=== PATIENT | female | born 1975 | race African-American/Black ===

== ENCOUNTER 2017-09-20 16:32 | Inpatient (IN) ==
[2017-09-20] MEDS ORDERED: METOCLOPRAMIDE 10 MG/2 ML VIAL IV STA (17:42)
[2017-09-20] MEDS ORDERED: PANTOPRAZOLE 40 MG VIAL IV STA (17:42)
[2017-09-20] MEDS ORDERED: ASPIRIN 325 MG TABLET PO STA (17:42)
[2017-09-20 18:27] LABS: Basophils % 0.4 % (0.0-0.8); Eosinophils # 0.1 10*3/uL (0.0-0.87); Eosinophils % 0.6 % (0.00-10.9); Hematocrit 39.2 VOL% (35.7-47.0); Hemoglobin 12.8 GM/DL (12.0-16.0); Immature Granulocytes % 0.4 %; Immature Granulocytes Absolute 0.04 #; Lymphocytes # 3.8 10*3/uL (1.4-4.0); Lymphocytes % 34.4 % (21.3-54.2); Mean Corpuscular HGB Conc 32.7 GM/DL (32-36); Mean Corpuscular Hemoglobin 28 PG (27-34); Mean Corpuscular Volume 86.9 FL (87-102); Mean Platelet Volume 11.8 FL (9.6-12.0); Monocytes # 0.9 10*3/uL (0.11-0.8); Monocytes % 8.3 % (1.7-12.7); Neutrophils # 6.2 10*3/uL (1.4-7.4); Neutrophils % 55.9 % (38.7-73.9); Platelet Count 262 T/CUMM (130-400); Red Blood Count 4.51 MC/CUMM (3.8-5.5); Red Cell Distribution Width 14.5 % (9.3-17.3); White Blood Count 11.1 T/CUMM (4-12)
[2017-09-20 18:42] LABS: INR 0.9; Partial Thromboplastin Time 26.4 SECS (0-40)
[2017-09-20 18:52] LABS: Alanine Aminotransferase 17 U/L (13-56); Albumin 3.5 G/DL (3.4-5.0); Alkaline Phosphatase 89 U/L (45-117); Aspartate Amino Transferase 21 U/L (0-37); Calcium 9.2 MG/DL (8.5-10.1); Total Protein 8.4 G/DL (6.4-8.3)
[2017-09-20 18:53] LABS: Blood Urea Nitrogen 11 MG/DL (7-18); Glucose 96 MG/DL (74-106); Osmolality,Calculated 275.5 MOS/KG (273-304); Potassium 3.4 MMOL/L (3.5-5.1); Sodium 139 MMOL/L (136-145); Troponin I Only < 0.015 NG/ML (0.00-0.045)
[2017-09-20] MEDS ORDERED: LEVOFLOXACIN INJ 750 MG in PREMIX 1 EACH IV STA (19:29)
[2017-09-20] MEDS ORDERED: ALBUTEROL/IPRATROPIUM 3 ML NEB RESP TX STA (19:30)
[2017-09-20] MEDS ORDERED: LEVOFLOXACIN 750 MG TABLET PO STA (21:47)
[2017-09-20] MEDS ORDERED: POTASSIUM CHLORIDE 20 MEQ PACK PO STA (22:08)
[2017-09-20] MEDS ORDERED: ACETAMINOPHEN 325 MG TABLET PO PRN (22:14)
[2017-09-21 00:35] LABS: Risk Ratio 4.46; Thyroid Stimulating Hormone 4.73 uIU/ml (0.358-3.74); VLDL CHOLESTEROL 22.6 MG/DL
[2017-09-21 06:25] LABS: Basophils % 0.4 % (0.0-0.8); Eosinophils # 0.1 10*3/uL (0.0-0.87); Eosinophils % 0.9 % (0.00-10.9); Hematocrit 37.8 VOL% (35.7-47.0); Hemoglobin 12.4 GM/DL (12.0-16.0); Immature Granulocytes % 0.5 %; Immature Granulocytes Absolute 0.05 #; Lymphocytes # 3.4 10*3/uL (1.4-4.0); Lymphocytes % 33.8 % (21.3-54.2); Mean Corpuscular HGB Conc 32.8 GM/DL (32-36); Mean Corpuscular Hemoglobin 28 PG (27-34); Mean Corpuscular Volume 86.3 FL (87-102); Mean Platelet Volume 12.1 FL (9.6-12.0); Monocytes # 0.9 10*3/uL (0.11-0.8); Monocytes % 8.6 % (1.7-12.7); Neutrophils # 5.7 10*3/uL (1.4-7.4); Neutrophils % 55.8 % (38.7-73.9); Platelet Count 235 T/CUMM (130-400); Red Blood Count 4.38 MC/CUMM (3.8-5.5); Red Cell Distribution Width 14.4 % (9.3-17.3); White Blood Count 10.1 T/CUMM (4-12)
[2017-09-21 07:06] LABS: Calcium 9.1 MG/DL (8.5-10.1); Osmolality,Calculated 277.4 MOS/KG (273-304); Potassium 3.4 MMOL/L (3.5-5.1)
[2017-09-21] MEDS ORDERED: DEXTROSE 50% 25 GM/50 ML VIAL IV PRN (07:19)
[2017-09-21] MEDS ORDERED: GLUCAGON 1 MG VIAL IM PRN (07:19)
[2017-09-21] MEDS ORDERED: FUROSEMIDE 40 MG/4 ML VIAL IV SCH (08:00)
[2017-09-21] MEDS: ALBUTEROL/IPRATROPIUM 3 ML NEB RESP TX SCH ×3 (08:15→19:37)
[2017-09-21] MEDS ORDERED: FUROSEMIDE 40 MG TABLET PO SCH (09:00)
[2017-09-21] MEDS: LOSARTAN/HCTZ 50-12.5 MG TABLET PO SCH (09:17)
[2017-09-21] MEDS: amLODIPine 5 MG TABLET PO SCH (09:17)
[2017-09-21] MEDS: ASPIRIN EC 81 MG TABLET PO SCH (09:17)
[2017-09-21] MEDS: CARVEDILOL 6.25 MG TABLET PO SCH ×2 (09:17→20:56)
[2017-09-21] MEDS: POTASSIUM CHLORIDE 10 MEQ TABLET PO SCH ×2 (09:18→20:56)
[2017-09-21] MEDS: INSULIN REGULAR 100 UNIT/ML SUBCUT SCH ×4 (09:18→20:02)
[2017-09-21] MEDS: metFORMIN 500 MG TABLET PO SCH (09:18)
[2017-09-21] MEDS: ENOXAPARIN 40 MG/0.4 ML SYRINGE SUBCUT SCH (09:19)
[2017-09-21] MEDS: POTASSIUM CHLORIDE RIDER 10 MEQ in PREMIX 1 EACH IV PRN ×3 (09:25→14:09)
[2017-09-21] MEDS: LEVOFLOXACIN 750 MG TABLET PO SCH (15:15)
[2017-09-21] MEDS ORDERED: GABAPENTIN 300 MG CAPSULE PO SCH (21:00)
[2017-09-21] MEDS ORDERED: traZODone 50 MG TABLET PO SCH (21:00)
[2017-09-22] MEDS: ALBUTEROL/IPRATROPIUM 3 ML NEB RESP TX SCH ×2 (00:44→07:29)
[2017-09-22 04:42] LABS: Basophils % 0.3 % (0.0-0.8); Eosinophils # 0.1 10*3/uL (0.0-0.87); Hematocrit 35.8 VOL% (35.7-47.0); Hemoglobin 11.5 GM/DL (12.0-16.0); Immature Granulocytes % 0.5 %; Immature Granulocytes Absolute 0.05 #; Lymphocytes # 3.3 10*3/uL (1.4-4.0); Lymphocytes % 33.1 % (21.3-54.2); Mean Corpuscular HGB Conc 32.1 GM/DL (32-36); Mean Corpuscular Hemoglobin 28 PG (27-34); Mean Corpuscular Volume 87.5 FL (87-102); Mean Platelet Volume 11.3 FL (9.6-12.0); Monocytes # 0.8 10*3/uL (0.11-0.8); Monocytes % 8.4 % (1.7-12.7); Neutrophils # 5.6 10*3/uL (1.4-7.4); Neutrophils % 56.7 % (38.7-73.9); Platelet Count 219 T/CUMM (130-400); Red Blood Count 4.09 MC/CUMM (3.8-5.5); Red Cell Distribution Width 14.3 % (9.3-17.3); White Blood Count 9.9 T/CUMM (4-12)
[2017-09-22 05:22] LABS: Albumin 2.8 G/DL (3.4-5.0); Bilirubin,Total 0.4 MG/DL (0.2-1.0); Calcium 9.4 MG/DL (8.5-10.1); Osmolality,Calculated 276.7 MOS/KG (273-304); Potassium 3.2 MMOL/L (3.5-5.1)
[2017-09-22] MEDS: INSULIN REGULAR 100 UNIT/ML SUBCUT SCH ×2 (10:24→11:57)
[2017-09-22] MEDS: ASPIRIN EC 81 MG TABLET PO SCH (10:26)
[2017-09-22] MEDS: metFORMIN 500 MG TABLET PO SCH (10:26)
[2017-09-22] MEDS: LOSARTAN/HCTZ 50-12.5 MG TABLET PO SCH (10:27)
[2017-09-22] MEDS: POTASSIUM CHLORIDE 10 MEQ TABLET PO SCH (10:27)
[2017-09-22] MEDS: CARVEDILOL 6.25 MG TABLET PO SCH (10:27)
[2017-09-22] MEDS: ENOXAPARIN 40 MG/0.4 ML SYRINGE SUBCUT SCH (10:28)
[2017-09-22] MEDS: amLODIPine 5 MG TABLET PO SCH (10:28)
[2017-09-22] MEDS ORDERED: POTASSIUM CHLORIDE 20 MEQ TABLET PO ONE (11:49)
[2017-09-22 12:10] VITALS: BP 121/61
[2017-09-22] MEDS: LEVOFLOXACIN 750 MG TABLET PO SCH (15:20)
== END 2017-09-22 15:20 | disposition home or self-care (01) | DRG 195 ==
LOC: N.ED 16:32 → N.EDINP 21:13 → SUATTDRO 21:13 → N.3E 22:58
PROVIDERS: ADMIT Internal Medicine; ATTEND Hospitalist